=== PATIENT | female | born 1980 | race Native Hawaiian/Other Pacific Islander ===

== ENCOUNTER 2020-12-06 12:53 | Emergency (ER) | payer OTHER ==
[~2020-12-06] VITALS: Ht 162.6 cm; Wt 101.6 kg
[~2020-12-06 12:53] MED LIST: ALUMSUS6 PO; ARIPIPRAZOLE15 MG PO; BENADRYL A12.5 MG/5 PO; BENZTROPINE0.5 MG PO; CARV6.25 PO; CHOL100034 PO; DULCOLAX10 MG RE; DULCOLAX5 MG PO; FLEET ENEMA RE; FURO20TA67 PO; GLUCAGEN HYPOKIT1 MG PO; GLUCAGON EMER1 MG/ML PO; GLUCOSE40 % PO; GUAIFENESIN DM PO; HYDR25CA25 PO; KAOPECTATE262 MG/15 PO; LAMICTAL25 MG PO; LEVO0.0218 PO; LIPITOR10 MG PO; LORA1TAB17 PO; MAGNSUS68 PO; MULTIVITAMIN AD1 TA2 PO; OLAN10INJ IM; ONDA4TAB3 PO; PANTOPRAZOLE SO40 M1 PO; PEPTO BISMOL262 MG PO; SCOP1.5D TD; TEMA15CA19 PO; ZYPREXA ZYDI10 MG PO; [UNRECOGNIZED DRUG - CODE] INJ; [UNRECOGNIZED DRUG - CODE] PO
[2020-12-06 13:00] VITALS: BP 147/84; TEMP 97.8
[2020-12-06 13:44] LABS: PLATELET COUNT 333 K/uL (152-353)
[2020-12-06] MEDS ORDERED: ABILIFY MYCITE30 MG PO (16:22)
[2020-12-06] MEDS ORDERED: LAMICTAL100 MG PO (16:32)
[2020-12-06] MEDS ORDERED: PROM25IN5 INJ (16:37)
[2020-12-06] MEDS ORDERED: DIPH12.553 PO (16:38)
[2020-12-06] MEDS ORDERED: GUAIFENESIN DM PO (16:40)
[2020-12-06] MEDS ORDERED: KAOPECTATE262 MG/15 PO (16:43)
[2020-12-06] MEDS ORDERED: TYLENOL325 MG PO (16:49)
[2020-12-20] MEDS ORDERED: OLANZAPINE10 MG PO (09:36)
[2020-12-20] MEDS ORDERED: LAMO100T PO (09:37)
[2020-12-20] MEDS ORDERED: NYST100016 EX (09:37)
[2020-12-20] MEDS ORDERED: ESCI10TA PO (09:37)
[2020-12-20] MEDS ORDERED: ABILIFY MYCITE30 MG PO (09:38)
[2021-02-25] MEDS ORDERED: CITALOPRAM10 M1 PO (00:06)
[2021-02-25] MEDS ORDERED: BISACODYL5 M1 PO (00:11)
[2021-02-25] MEDS ORDERED: PROMETHAZINE25 MG/M2 IM (00:15)
[2021-02-25] MEDS ORDERED: DIPH12.553 PO (00:18)
[2021-02-25] MEDS ORDERED: TUSSIN DM PO (00:24)
[2021-02-25] MEDS ORDERED: GLUCAGEN DIAGNOS1 MG IM (00:45)
[2021-02-25] MEDS ORDERED: GLUCOSE PO (00:55)
[2021-02-25] MEDS ORDERED: KAOPECTATE262 MG/15 PO (01:00)
[2021-02-25] MEDS ORDERED: FLEET ENEMA RE (01:03)
[2021-02-25] MEDS ORDERED: OLANZAPINE10 MG PO (01:15)
[2021-02-25] MEDS ORDERED: CHOL100034 PO (01:15)
== END 2020-12-06 14:23 | disposition still patient (30) ==
LOC: ED 12:53
PROVIDERS: Emergency Medicine Emergency Medical Services
DX: R45.851 Suicidal ideations (principal); F32.89 Other specified depressive episodes; Z11.59 Encounter for screening for other viral diseases; Z04.6 Encounter for general psychiatric examination, requested by authority
CPT/HCPCS: 80053; 85027; 87635; 93005; 99283; 99285; U0003

== ENCOUNTER 2021-02-24 19:25 | Emergency (ER) | payer OTHER ==
[~2021-02-24] VITALS: Ht 162.6 cm; Wt 112.0 kg
[2021-02-24 19:25] VITALS: BP 114/68; TEMP 98.4
[~2021-02-24 19:25] MED LIST changes: +ABILIFY MYCITE30 MG PO; +DIPH12.553 PO; +ESCI10TA PO; +LAMICTAL100 MG PO; +LAMO100T PO; +NYST100016 EX; +OLANZAPINE10 MG PO; +PROM25IN5 INJ; +TYLENOL325 MG PO
[2021-02-24 19:47] LABS: PLATELET COUNT 313 K/uL (152-353)
[2021-02-24 19:56] LABS: POTASSIUM 3.5 mmol/L (3.6-5.2)
[2021-02-24] MEDS ORDERED: DAILY-VITE1 TAB PO (23:51)
[2021-02-25] MEDS ORDERED: CITALOPRAM10 M1 PO (00:06)
[2021-02-25] MEDS ORDERED: BISACODYL5 M1 PO (00:11)
[2021-02-25] MEDS ORDERED: PROMETHAZINE25 MG/M2 IM (00:15)
[2021-02-25] MEDS ORDERED: DIPH12.553 PO (00:18)
[2021-02-25] MEDS ORDERED: TUSSIN DM PO (00:24)
[2021-02-25] MEDS ORDERED: GLUCAGEN DIAGNOS1 MG IM (00:45)
[2021-02-25] MEDS ORDERED: GLUCOSE PO (00:55)
[2021-02-25] MEDS ORDERED: KAOPECTATE262 MG/15 PO (01:00)
[2021-02-25] MEDS ORDERED: FLEET ENEMA RE (01:03)
[2021-02-25] MEDS ORDERED: CHOL100034 PO (01:15)
[2021-02-25] MEDS ORDERED: OLANZAPINE10 MG PO (01:15)
== END 2021-02-24 21:00 | disposition still patient (30) ==
LOC: ED 19:40
PROVIDERS: Hospitalist
DX: F25.0 Schizoaffective disorder, bipolar type (principal); R45.851 Suicidal ideations; Z11.52 Encounter for screening for COVID-19; Z04.6 Encounter for general psychiatric examination, requested by authority
CPT/HCPCS: 36415; 80053; 85027; 87635; 93005; 99283; U0003

== ENCOUNTER 2022-03-04 15:08 | Emergency (ER) | payer OTHER ==
[~2022-03-04] VITALS: Ht 162.6 cm; Wt 107.5 kg
[~2022-03-04 15:08] MED LIST changes: +ATOR20TA2 PO; +BENZ1TAB43 PO; +BISACODYL5 M1 PO; +CITA20TA2 PO; +CITALOPRAM10 M1 PO; +CLOZ100T PO; +DAILY-VITE1 TAB PO; +FURO40TA93 PO; +GLUCAGEN DIAGNOS1 MG IM; +GLUCOSE PO; +PROMETHAZINE25 MG/M2 IM; +TUSSIN DM PO
[2022-03-04 16:05] LABS: PLATELET COUNT 329 K/uL (152-353)
[2022-03-04 16:11] LABS: POTASSIUM 3.2 mmol/L (3.6-5.2)
[2022-03-04 16:40] VITALS: BP 120/74; TEMP 98.8
[2022-03-04] MEDS ORDERED: TRAMADOL HYDROC50 MG PO (20:53)
[2022-03-04] MEDS ORDERED: ANTIHISTAMIN25 MG PO (20:55)
[2022-03-04] MEDS ORDERED: ALBUSOL INH (20:56)
[2022-03-04] MEDS ORDERED: HYDR25CA25 PO (21:09)
[2022-03-04] MEDS ORDERED: VITAMIN D1000 UNIT PO (21:11)
[2022-03-04] MEDS ORDERED: OLANZAPINE20 M1 PO (21:15)
[2022-03-04] MEDS ORDERED: FUROSEMIDE80 MG PO (21:31)
[2022-03-04] MEDS ORDERED: BENZ1TAB43 PO (21:31)
== END 2022-03-04 16:41 | disposition still patient (30) ==
LOC: ED 15:08
PROVIDERS: Emergency Medicine
DX: F25.8 Other schizoaffective disorders (principal); R45.1 Restlessness and agitation; R46.89 Other symptoms and signs involving appearance and behavior; N39.0 Urinary tract infection, site not specified; Z11.52 Encounter for screening for COVID-19; Z04.6 Encounter for general psychiatric examination, requested by authority
CPT/HCPCS: 36415; 80053; 81000; 85027; 87077; 87086; 87088; 87186; 87635; 93005; 96372; 99283; J2060; J3486; U0003

== ENCOUNTER 2022-07-10 14:18 | Emergency (ER) | payer OTHER ==
[~2022-07-10] VITALS: Ht 160 cm; Wt 112.2 kg
[2022-07-10 14:18] VITALS: BP 145/95; TEMP 98.1
[~2022-07-10 14:18] MED LIST changes: +ACET-206 PO; +ALBUSOL INH; +ANTIHISTAMIN25 MG PO; +ARIPIPRAZOLE10 MG PO; +CONGENTIN 1MG TAB PO; +COREG 6.25MG TAB PO; +DULCOLAX 5MG TAB PO; +FOLI1TAB26 PO; +FUROSEMIDE80 MG PO; +HYDR50CA21 PO; +LEVO0.0529 PO; +OLANZAPINE10 M2 PO; +OLANZAPINE7.5 MG PO; +PANTOPRAZOLE 40MG TA PO; +POTA20TA4 PO; +SERT50TA PO; +SERTRALINE HYDR50 MG PO; +TRAMADOL HYDROC50 MG PO; +TRAZ50TA36 PO; +TRAZODONE HYDRO50 MG PO; +TUBE5INJ9 ID; +VITAMIN D1000 UNIT PO
[2022-07-10 14:46] LABS: PLATELET COUNT 373 K/uL (152-353)
[2022-07-10 14:55] LABS: POTASSIUM 3.7 mmol/L (3.6-5.2)
[2022-07-10] MEDS ORDERED: LIPITOR10 MG PO (17:56)
[2022-07-10] MEDS ORDERED: FUROSEMIDE80 MG PO (17:57)
[2022-07-10] MEDS ORDERED: FOLI1TAB26 PO (17:57)
[2022-07-10] MEDS ORDERED: LAMICTAL200 MG PO (17:58)
[2022-07-10] MEDS ORDERED: PANTOPRAZOLE 40MG TA PO (17:59)
[2022-07-10] MEDS ORDERED: EUTHYROX50 MCG PO (17:59)
[2022-07-10] MEDS ORDERED: POTASSIUM CHLO20 ME1 PO (18:00)
[2022-07-10] MEDS ORDERED: SERTRALINE HYDR50 MG PO (18:00)
[2022-07-10] MEDS ORDERED: TRAZODONE HYDRO50 MG PO (18:01)
[2022-07-10] MEDS ORDERED: BENADRYL ALLERG25 M2 PO (18:02)
[2022-07-10] MEDS ORDERED: VITAMIN D1000 UNI1 PO (18:03)
[2022-07-10] MEDS ORDERED: ZIPR20CA PO (18:03)
[2022-07-10] MEDS ORDERED: OLANZAPINE15 MG PO (18:04)
[2022-07-10] MEDS ORDERED: TYLENOL325 MG PO ×2 (18:04→18:05)
[2022-07-10] MEDS ORDERED: DIPH50IN INJ (18:06)
[2022-07-10] MEDS ORDERED: ZIPR20IN IM (18:07)
== END 2022-07-10 15:43 | disposition still patient (30) ==
LOC: ED 14:18
PROVIDERS: Emergency Medicine Emergency Medical Services
DX: R46.89 Other symptoms and signs involving appearance and behavior (principal); R45.1 Restlessness and agitation; Z11.52 Encounter for screening for COVID-19; Z04.6 Encounter for general psychiatric examination, requested by authority
CPT/HCPCS: 80053; 85027; 87635; 93005; 99283; U0003

== ENCOUNTER 2023-02-27 17:11 | Emergency (ER) | payer OTHER ==
[~2023-02-27] VITALS: Ht 160 cm; Wt 136.1 kg
[~2023-02-27 17:11] MED LIST changes: +BENADRYL ALLERG25 M2 PO; +DIPH25CA90 PO; +DIPH50IN INJ; +EUTHYROX50 MCG PO; +LAMICTAL200 MG PO; +LORA0.5T17 PO; +OLANZAPINE15 MG PO; +POTASSIUM CHLO20 ME1 PO; +VITAMIN D1000 UNI1 PO; +ZIPR20CA PO; +ZIPR20IN IM; +ZIPRASIDONE HCL20 MG PO
[2023-02-27 17:13] VITALS: BP 118/57; TEMP 98
[2023-02-27 17:43] LABS: PLATELET COUNT 355 K/uL (152-353)
[2023-02-27 17:52] LABS: POTASSIUM 3.9 mmol/L (3.6-5.2)
[2023-02-27] MEDS ORDERED: LEVO0.0529 PO (21:26)
[2023-02-27] MEDS ORDERED: ZYPREXA ZYDI20 MG PO (21:28)
[2023-02-27] MEDS ORDERED: DIPHENHYDRAM50 M2 PO (21:30)
[2023-02-27] MEDS ORDERED: BUSP15TAB2 PO (21:31)
[2023-02-27] MEDS ORDERED: ZIPRASIDONE HYD40 MG PO (21:33)
[2023-02-27] MEDS ORDERED: LAMICTAL100 MG PO (21:34)
[2023-02-27] MEDS ORDERED: TRILEPTAL300 MG PO (21:35)
[2023-02-27] MEDS ORDERED: LORA0.5T17 PO (21:36)
[2023-02-27] MEDS ORDERED: TYLENOL325 MG PO (21:37)
[2023-02-27] MEDS ORDERED: ZIPR20IN IM (21:38)
[2023-02-27] MEDS ORDERED: MILK OF MA400 MG/5 M PO (21:38)
== END 2023-02-27 19:00 | disposition still patient (30) ==
LOC: ED 17:11
PROVIDERS: Emergency Medicine
DX: F25.8 Other schizoaffective disorders (principal); R45.1 Restlessness and agitation; I25.10 Atherosclerotic heart disease of native coronary artery without angina pectoris; M19.90 Unspecified osteoarthritis, unspecified site; Z11.52 Encounter for screening for COVID-19; Z04.6 Encounter for general psychiatric examination, requested by authority
CPT/HCPCS: 36415; 80053; 85027; 87635; 93005; 99283; U0003

== ENCOUNTER 2023-06-05 21:54 | Emergency (ER) | payer OTHER ==
[~2023-06-05] VITALS: Ht 162.6 cm; Wt 99.8 kg
[~2023-06-05 21:54] MED LIST changes: +BUSP15TAB2 PO; +DIPHENHYDRAM50 M2 PO; +LORA2INJ21 IM; +MILK OF MA400 MG/5 M PO; +OXCARBAZEPIN600 MG PO; +ZIPRASIDONE HYD40 MG PO; +ZYPREXA ZYDI20 MG PO
[2023-06-05 22:47] LABS: PLATELET COUNT 399 K/uL (152-353)
[2023-06-05 22:53] LABS: POTASSIUM 3.7 mmol/L (3.6-5.2)
[2023-06-05 23:12] VITALS: BP 135/88; TEMP 97.2
[2023-06-06] MEDS ORDERED: VITAMIN D5000 UNIT PO (07:51)
[2023-06-06] MEDS ORDERED: OMEP20CA PO (07:53)
[2023-06-06] MEDS ORDERED: GEODON60 MG PO (08:00)
[2023-06-06] MEDS ORDERED: LAMO100T PO (08:03)
[2023-06-06] MEDS ORDERED: LAMICTAL25 MG PO (08:06)
[2023-06-06] MEDS ORDERED: OLANZAPINE15 M1 PO (08:08)
[2023-06-06] MEDS ORDERED: DIPH50IN INJ (08:20)
== END 2023-06-05 23:12 ==
LOC: ED 21:54
PROVIDERS: Family Medicine
DX: R45.1 Restlessness and agitation (principal); F20.9 Schizophrenia, unspecified; Z02.79 Encounter for issue of other medical certificate
CPT/HCPCS: 36415; 80053; 85027; 87635; 93005; 99283; U0003

== ENCOUNTER 2023-07-09 18:18 | Emergency (ER) | payer OTHER ==
[~2023-07-09] VITALS: Ht 160 cm; Wt 119.3 kg
[~2023-07-09 18:18] MED LIST changes: +Atorvastatin Calcium PO; +GEODON60 MG PO; +OLANZAPINE15 M1 PO; +OMEP20CA PO; +OXCARBAZEPIN300 MG PO; +VITAMIN D5000 UNIT PO
[2023-07-09 18:22] VITALS: TEMP 98
[2023-07-09 19:04] LABS: POTASSIUM 3.7 mmol/L (3.6-5.2)
[2023-07-09 19:15] LABS: PLATELET COUNT 284 K/uL (152-353)
[2023-07-09 20:40] VITALS: BP 123/59
[2023-07-10] MEDS ORDERED: ZYPREXA ZYDI10 MG PO (07:55)
[2023-07-10] MEDS ORDERED: TRAZ100T PO (07:56)
[2023-07-10] MEDS ORDERED: [UNRECOGNIZED DRUG - OTHER] IM (08:26)
[2023-07-10] MEDS ORDERED: CARV6.25 PO (08:32)
[2023-07-23] MEDS ORDERED: ACET-206 PO (10:29)
[2023-07-23] MEDS ORDERED: CHOL100034 PO (10:29)
[2023-07-23] MEDS ORDERED: COREG 6.25MG TAB PO (10:29)
[2023-07-23] MEDS ORDERED: Atorvastatin Calcium PO (10:29)
[2023-07-23] MEDS ORDERED: FURO40TA93 PO (10:30)
[2023-07-23] MEDS ORDERED: LAMICTAL25 MG PO (10:30)
[2023-07-23] MEDS ORDERED: LAMO100T PO (10:30)
[2023-07-23] MEDS ORDERED: OLANZAPINE10 MG PO (10:31)
[2023-07-23] MEDS ORDERED: LEVO0.0529 PO (10:31)
[2023-07-23] MEDS ORDERED: LORA0.5T17 PO (10:31)
[2023-07-23] MEDS ORDERED: PANTOPRAZOLE 40MG TA PO (10:32)
[2023-07-23] MEDS ORDERED: OXCARBAZEPIN300 MG PO (10:32)
[2023-07-23] MEDS ORDERED: POTA20TA4 PO (10:32)
[2023-07-23] MEDS ORDERED: SERT50TA PO (10:32)
[2023-07-23] MEDS ORDERED: TRAZ50TA36 PO (10:33)
== END 2023-07-09 20:40 | disposition other institution (70) ==
LOC: ED 18:18
PROVIDERS: Family Medicine
DX: F29 Unspecified psychosis not due to a substance or known physiological condition (principal); F32.A Depression, unspecified; Z02.79 Encounter for issue of other medical certificate
CPT/HCPCS: 36415; 80053; 85027; 87635; 93005; 99283; U0003